=== PATIENT | male | born 1970 | race Caucasian/White ===

== ENCOUNTER 2017-04-07 10:33 | Observation (INO) ==
[2017-04-07 11:22] LABS: Basophils % 0.1 % (0.0-0.8); Eosinophils % 0.4 % (0.00-10.9); Hematocrit 45.7 VOL% (42.0-52.0); Hemoglobin 15.9 GM/DL (14.0-18.0); Immature Granulocytes % 0.4 %; Immature Granulocytes Absolute 0.03 #; Lymphocytes # 1.5 10*3/uL (1.4-4.0); Lymphocytes % 19.9 % (21.2-54.2); Mean Corpuscular HGB Conc 34.8 GM/DL (32-36); Mean Corpuscular Hemoglobin 30 PG (27-34); Mean Platelet Volume 9.2 FL (9.6-12.0); Monocytes # 0.7 10*3/uL (0.11-0.8); Neutrophils # 5.4 10*3/uL (1.4-7.4); Neutrophils % 70.2 % (38.7-73.9); Platelet Count 249 T/CUMM (130-400); Red Blood Count 5.25 MC/CUMM (3.8-5.5); Red Cell Distribution Width 12.6 % (9.3-17.3); White Blood Count 7.7 T/CUMM (4-12)
[2017-04-07 11:23] LABS: Apearance,Urine CLEAR (Clear); Bilirubin,Urine Negative (Negative); Blood, Urine Negative (Negative); Glucose,Urine (UA) Negative (Negative); Ketones,Urine Negative (Negative); Mucus,Urine Few /LPF (Occasional); Nitrite,Urine Negative (Negative); Protein,Urine Negative; RBC,Urine 1 /HPF (0-4); Urine Color Yellow (Yellow); Urine Specific Gravity 1.024 (1.001-1.035); WBC,Urine <1 /HPF (0-6)
[2017-04-07 11:52] LABS: Lactic Acid 0.7 MMOL/L (0.4-2.0)
[2017-04-07 11:54] LABS: Albumin 3.8 G/DL (3.4-5.0); Bilirubin,Total 1.2 MG/DL (0.2-1.0); Calcium 8.7 MG/DL (8.5-10.1); Osmolality,Calculated 276.5 MOS/KG (273-304); Potassium 4.2 MMOL/L (3.5-5.1); Total Protein 7.4 G/DL (6.4-8.3)
--- NOTE | 2017-04-07 12:41 | Emergency Department Note ---
Arrival - Arrival Chief Complaint: Abdominal / Flank Pain Stated Complaint: apendix ED Nursing Triage Note: Pt c/o right lower abd pain since yesterday with some nausea. Sent from [facility] for eval. Mode of Arrival: Wheelchair Source: Patient Time Seen by Provider: 04/07/17 11:01 - History of Present Illness HPI Narrative: 46 y/o white male presents to the ER complaining of nausea and RLQ abdominal pain. Symptoms started yesterday. Pain exacerbated with movement and improves with rest. Denies vomiting, diarrhea, constipation, or fever. Past medical history significant for kidney stones and lithotripsy. Primary Care Physician: Dr. Carranza Onset (ago): day(s) (1) Consistency: constant Severity: mild Quality: aching Allergies/Adverse Reactions: Allergies Allergy/AdvReac Type Severity Reaction Status Date / Time morphine AdvReac Vomiting Verified 04/15/16 23:42 Home Medications: Home Medications Medication Instructions Recorded Confirmed Type cephALEXin [Keflex] 500 mg PO Q8HR 7 Days 04/16/16 Rx Review of System - Review of System 12 point system: reviewed and no additional remarkable complaints except as stated - Review of System Gastrointestinal: Present: abdominal pain (RLQ ), nausea Medical,Surgical,& Family Hx - Medical History Genitourinary: History of: Kidney Stones - Surgical History Thoracic Surgeries: Surgical HX of;: Lithotripsy - Social History Smoking Status: Never smoker Exam Vital Signs: Vital Signs Temperature 98.8 F 04/07/17 11:06 Pulse Rate 63 04/07/17 12:04 Respiratory Rate 18 04/07/17 12:04 Blood Pressure 144/97 04/07/17 12:04 O2 Sat by Pulse Oximetry 98 04/07/17 10:35 - General General appearance: alert, in no apparent distress - ENT ENT exam: Present: normal exam, normal oropharynx, mucous membranes moist - Chest Chest inspection: Present: normal inspection - Respiratory Respiratory exam: Present: normal lung sounds bilaterally - Cardiovascular Cardiovascular exam: Present: regular rate, normal rhythm, normal heart sounds - Abdominal Exam Abdominal exam: Present: soft, tenderness (RLQ ), normal bowel sounds, psoas sign. Absent: heel tap sign - Extremities Exam Extremities exam: Present: normal inspection, full ROM - Neurological Exam Neurological exam: Present: alert, oriented X3 - Psychiatric Psychiatric exam: Present: normal affect, normal mood - Skin Skin exam: Present: warm, dry Course Course Narrative: Patient transferred to Same Day Surgery. - Consultations Consultation #1: Dr. Brock Time: 13:15 (Discussed with Dr. Brock. Will admit patient to his services ) Results - Labs CBC & BMP: 04/07/17 11:19 04/07/17 11:19 Lab Results: I have reviewed the patients labs - Diagnostic Findings Procedure: CT Abdomen and Pelvis: image reviewed by me, report reviewed by me ( acute appendicitis ) Disposition Clinical Impression: Acute appendicitis, Nausea Disposition: Still a Patient Condition: Stable
--- NOTE | 2017-04-07 12:44 | CT Report ---
CT of the abdomen and pelvis with intravenous contrast. No oral contrast was administered. Axial images were obtained with sagittal and coronal reconstructions. Indication: Right lower quadrant pain. Nausea and vomiting. Comparison: December 08, 2013. 100 cc Omni 350. The heart is normal in size. There are mild hypoaeration changes present at the lung bases. The hiatus is patulous, with fatty tissue prominence. No hiatal hernia is seen. The liver is normal in size and density. No focal liver lesion. No intrahepatic biliary ductal dilatation. No splenic enlargement. There is an accessory splenic nodule. No adrenal enlargement. The kidneys are normal in size, location, and contour without hydronephrosis. No pancreatic abnormality. The abdominal aorta is of normal caliber. There is mild free fluid in the pelvis. The loops of bowel are not dilated. The appendix demonstrates dilatation, measuring up to 10 mm in diameter. There is enhancing wall thickening, with irregularity. There is a small amount of inflammation in the surrounding fat. The colon is not dilated. There is no colonic wall thickening. Possible cystic change involving the seminal vesicles. No adenopathy is seen. Degenerative changes are noted within the spinal column, most pronounced at L5-S1. Impression: 1. Findings consistent with acute appendicitis. 2. Patulous abdominal hiatus. No evidence of hiatal hernia at this time. 3. Suspected small cystic areas within the seminal vesicles. The CT exam was performed using one or more of the following dose reduction techniques: Automated exposure control, adjustment of the mA and/or kV according to patient size, or use of iterative reconstruction technique. PROCEDURE INTERPRETED AT [facility] DEPARTMENT OF RADIOLOGY Final Report Signed by: Dr. Reena Laws
[2017-04-07] MEDS ORDERED: SODIUM CHLORIDE 0.9% 1,000 ML IV STA (12:56)
--- NOTE | 2017-04-07 13:38 | General Surg History&Physical ---
Assessment and Plan (1) Acute appendicitis Status: Acute Assessment and plan: The patient has CT proven acute appendicitis. There is no evidence of perforation or abscess. I discussed management options with the patient including medical management with antibiotics and operative intervention. I recommended laparoscopic appendectomy to the patient but of also offered to treat him with antibiotics alone if this is what he desires. I have discussed the risks, benefits, and alternatives of the operation, and the expected outcomes have been reviewed. In particular, I discussed risk of bowel injury, bladder injury, injury to the ureter, infection and postoperative abscess as well as hernia of the incisions. I have discussed the option for antibiotic management and the success rate of 75% with antibiotics alone. Patient would like to proceed with operation. This will be scheduled when an operating room is available. The patient appears well resuscitated and is receiving cefoxitin. Current Visit: Yes History of Present Illness Chief complaint: Abdominal pain History of present illness: Mr. Dukes is a 46 year old male who developed abdominal pain the right lower quadrant on Friday and smoldered through the weekend. It worsened today and he came to the ER for evaluation. Reports some nausea. Subjective fevers. Workup in the ER showed normal white blood cell count and CT scan shows acute nonperforated appendicitis. Bilirubin was a little bit elevated once lab work but there is no stones in his gallbladder and there is no inflammation in the right upper quadrant. Patient's never had abdominal surgery. Home Medications Medication Instructions Recorded Confirmed Type cephALEXin [Keflex] 500 mg PO Q8HR 7 Days 04/16/16 Rx Allergies Allergy/AdvReac Type Severity Reaction Status Date / Time morphine AdvReac Vomiting Verified 04/15/16 23:42 Medical,Surgical,& Family Hx - Medical History Genitourinary: History of: Kidney Stones - Surgical History Thoracic Surgeries: Surgical HX of;: Lithotripsy - Social History Smoking Status: Never smoker Exam - Constitutional Vitals: Period Temp Pulse Resp BP Sys/Robledo Pulse Ox Last 24 Hr 98.8 F-98.8 F 63-83 18-20 140-144/90-97 98 General appearance: no acute distress, over weight - Head Head exam: Present: normal inspection, normocephalic - Eye Eye exam: Present: EOMI Pupils: Present: DIAMOND - ENT ENT exam: Present: normal exam Mouth exam: Present: normal external inspection, normal voice - Neck Neck exam: Present: normal inspection, trachea midline - Respiratory Respiratory exam: Present: clear to auscultation bilaterally. Absent: accessory muscle use, chest wall tenderness - Cardiovascular Cardiovascular exam: Present: RRR. Absent: systolic murmur, tachycardia - GI/Abdominal GI/Abdominal exam: Present: normal bowel sounds, tenderness (There is focal tenderness in the right lower quadrant with voluntary guarding.), soft. Absent : rebound - Extremities Exam Extremities exam: Present: normal inspection, normal capillary refill - Back Exam Back exam: Present: normal inspection - Neurological Exam Neurological exam: Present: alert, oriented X3 Speech: Present: normal - Skin Skin exam: Present: normal color, warm - Constitutional Constitutional: Present: as per HPI - EENT Nose, mouth and throat: Present: as per HPI - Cardiovascular Cardiovascular: Present: as per HPI - Respiratory Respiratory: Present: as per HPI - Gastrointestinal Gastrointestinal: Present: as per HPI - Genitourinary Genitourinary: Present: as per HPI - Musculoskeletal Musculoskeletal: Present: as per HPI - Neurological Neurological: Present: as per HPI - Endocrine Endocrine: Present: as per HPI Hematologic/Lymphatic: Present: as per HPI Results - Labs CBC & BMP: 04/07/17 11:19 04/07/17 11:19 - Diagnostic Findings Procedure: CT Abdomen and Pelvis: image reviewed by me, report reviewed by me ( Acute nonperforated appendicitis)
[2017-04-07] MEDS ORDERED: TISSUE ADHESIVE 1 EACH APPLICATOR TOP ONE (16:15)
[2017-04-07] MEDS ORDERED: BUPIVACAINE 0.25% 50 ML VIAL ONE (16:15)
[2017-04-07] MEDS ORDERED: SUCCINYLCHOLINE 200 MG/10 ML VIAL ONE (16:40)
[2017-04-07] MEDS ORDERED: PROPOFOL 200 MG/20 ML VIAL IV ONE (16:40)
[2017-04-07] MEDS ORDERED: ONDANSETRON 4 MG/2 ML VIAL ONE ×2 (16:40→17:40)
[2017-04-07] MEDS ORDERED: LIDOCAINE 2% 5 ML VIAL ONE (16:40)
[2017-04-07] MEDS ORDERED: ROCURONIUM 100 MG/10 ML VIAL IV ONE (16:40)
[2017-04-07] MEDS ORDERED: SUGAMMADEX 200 MG/2 ML VIAL IV ONE (17:22)
--- NOTE | 2017-04-07 17:32 | Operative Note ---
Date of procedure: 04/07/17 Pre-op diagnosis: Appendicitis Post-op diagnosis: same Procedure: Preoperative diagnosis Acute appendicitis Postoperative diagnosis Same Procedures performed Laparoscopic appendectomy Findings Acute nonperforated appendicitis Blood loss 5 mL Anesthesia GETA Complications None apparent Specimen Appendix Indications Acute appendicitis CT proven. I discussed the option of medical treatment with antibiotics alone with the patient in detail. I discussed the failure rate of 25% with antibiotics alone and the requirement to stay in the hospital for several days of antibiotics and observation. The patient decided to proceed with laparoscopic appendectomy. I discussed the risks, benefits, and alternatives of the operation with the patient, and the expected outcomes were reviewed. In particular, I discussed the risk of bleeding, infection, wound complications, bowel obstruction, and ureteral injury. The patient elects to proceed with the operation. Description of procedure The patient was taken to the operating room and transferred to the operating table in the supine position. Pressure points were padded and SCDs were placed to bilateral lower extremities. General endotracheal anesthesia was administered. The abdominal hair was clipped with electric clippers and the abdomen was prepped with chlorhexidine and draped sterilely. Preoperative antibiotics were administered, and a timeout was performed. The abdomen was entered in the supraumbilical location in the right paramedian position with a Veress needle. Local anesthetic was administered and a 12 mm skin incision was made with an 11 blade scalpel. Penetrating towel clips were used to grasp the abdominal wall skin and a Veress needle was used into the peritoneal cavity. Intra-peritoneal location was confirmed with a double click technique. Aspiration was negative. Saline drop test confirmed intraperitoneal location. The abdomen was insufflated to 15 mmHg with initial insufflation pressure of 7 mmHg. The Veress needle was removed and a 12 mm trocar was placed bluntly. Diagnostic laparoscopy was then performed. There was no evidence of Veress needle or trocar injury. The patient was placed in Trendelenburg and left side rolled down position. Under direct visualization, and after local anesthetic was administered, 2 additional 5 mm trochars were placed in the suprapubic position in the left lower quadrant position. The bowel was then moved out of the right lower quadrant and the appendix was visualized. The appendix was grasped and retracted towards the patient's feet in a window in the appendiceal mesentery was created with [place] dissector. LORE stapler was then used to transect the base of the appendix. The appendiceal mesentery was also divided using vascular staple loads. The right lower quadrant was focally suction irrigated. This was done until the effluent was clear. The appendix was placed in Endo Catch bag and removed through the 12 mm trocar site. The CO2 was then released from the abdomen and the trochars were removed. Skin incisions were closed with 4-0 Monocryl and sterile skin glue was applied. The patient was awakened from anesthesia and transferred to recovery. Postoperative plan Diet as tolerated Follow-up in 2 weeks Anesthesia: YOBANI, local Surgeon / Physician: Chinedu Brock Estimated blood loss: minimal Specimens: other (appendix) Condition: stable Disposition: PACU Results - Labs CBC & BMP: 04/07/17 11:19 04/07/17 11:19 Discharge Plan - Discharge Medications No Action cephALEXin [Keflex] 500 mg PO Q8HR 7 Days - Follow Up or Referral - Forms/Instructions
[2017-04-07] MEDS ORDERED: ONDANSETRON 4 MG/2 ML VIAL IV PRN ×2 (17:40→19:34)
[2017-04-07] MEDS ORDERED: HYDROmorphone 2 MG/1 ML VIAL ONE (17:40)
[2017-04-07] MEDS: HYDROmorphone 2 MG/1 ML VIAL IV PRN ×4 (17:40→17:55)
[2017-04-07] MEDS ORDERED: LACTATED RINGERS 1,000 ML IV SCH ×2 (17:40→19:34)
[2017-04-07] MEDS ORDERED: fentaNYL 100 MCG/2 ML VIAL ONE (18:32)
[2017-04-07] MEDS ORDERED: DESFLURANE 1 UNIT/15 MINUTE INH ONE (18:32)
[2017-04-07] MEDS ORDERED: MIDAZOLAM 2 MG/2 ML VIAL ONE (18:33)
[2017-04-07] MEDS ORDERED: PROMETHAZINE 25 MG/1 ML VIAL IM PRN (19:34)
[2017-04-07] MEDS ORDERED: HYDROmorphone 2 MG/1 ML VIAL IV PRN (19:34)
[2017-04-07] MEDS: KETOROLAC 15 MG/1 ML VIAL IV SCH (22:04)
[2017-04-08] MEDS: KETOROLAC 15 MG/1 ML VIAL IV SCH ×2 (01:15→10:17)
--- NOTE | 2017-04-08 07:04 | Anesthesia Post-Op ---
Anesthesia Post OP - Post Ansesthetic Evaluation Patient seen in post op: Yes Resp: within normal limits CV: within normal limits Mental: within normal limits Temp: within normal limits [id number]-Vcunbnsah: within normal limits Nausea and Vomiting: within normal limits Pain: within normal limits
--- NOTE | 2017-04-08 10:39 | Event Note ---
General Surgery Progress Note Chief complaint This patient is a 46-year-old man who is admitted with acute appendicitis treated with laparoscopic appendectomy on 04/07/2017 Interval history The patient did well overnight. He does not report any pain this morning. He is eating well with no nausea or vomiting. Physical exam Patient is afebrile with normal vital signs His abdominal exam reveals expected postoperative tenderness with clean incisions and no evidence of erythema or drainage Labs None new Imaging None Assessment and plan Discharge home today Follow-up in clinic in 2 weeks
--- NOTE | 2017-04-08 11:06 | Discharge Summary ---
Hospital Course - Hospital Course Hospital Course: Patient is a 46-year-old male who was admitted with acute appendicitis and underwent laparoscopic appendectomy. He experienced no perioperative complications. The day of discharge, he was tolerating oral intake, voiding without difficulty, passing flatus, and had adequate pain management. He was discharged home with appropriate postoperative instructions with a follow-up appointment in 2 weeks. Postoperative analgesics were provided. Diagnosis - Discharge Diagnosis (1) Acute appendicitis Status: Acute Specialty Discharge - Follow Up or Referrals Follow up with: Chinedu Brock MD [Physician] - 04/17/17 9:45 am Discharge Plan - Discharge Data Disposition: Disch To Home/Self Care Condition at Discharge: Stable Discharge Diet: advance to your usual diet Activity: no lifting (> 10 lb), other (Avoid excessive perspiration. No driving while taking narcotics. ) Hygiene: may shower Driving: other (no drivign while taking narcotics) Contact your physician if you experience:: fever over 101, Redness or swelling, Nausea/Vomiting, Bleeding, pain uncontrolled by pain medications Wound / Dressing Care Instructions: Keep incisions clean and dry. Avoid excessive sweating. - Discharge Medications New HYDROcodone/ACETAMIN 7.5-325 [[place] 7.5-325] 1 tablet PO Q4H PRN #30 tablet PRN Reason: Pain Moderate To Severe (4-10) Continue cephALEXin [Keflex] 500 mg PO Q8HR 7 Days - Follow Up or Referral Follow Up: Chinedu Brock MD [Physician] - 04/17/17 9:45 am - Forms/Instructions Instructions: Appendicitis (DC), Laparoscopic Appendectomy (DC) Exam - Constitutional Vitals: Period Temp Pulse Resp BP Sys/Robledo Pulse Ox Last 24 Hr 97.2 F-99.0 F 60-86 15-20 103-185/58-102 94-100 General appearance: no acute distress - Head Head exam: Present: normocephalic - Respiratory Respiratory exam: Present: clear to auscultation bilaterally - Cardiovascular Cardiovascular exam: Present: regular rate and rhythm - GI/Abdominal GI/Abdominal exam: Present: normal bowel sounds, soft, other (appropriate p/o tenderness; surgical incisions c/d/i. No peritoneal signs. ) - Extremities Exam Extremities exam: Absent: calf tenderness, edema - Neurological Exam Neurological exam: Present: alert, oriented X3 Discharge Results Procedures and tests throughout hospitalization: Appendix pathology pending. Pt underwent laparoscopic appendectomy Labs on day of discharge: Labs from last 24 hours 04/07/17 04/07/17 04/07/17 11:19 11:19 11:19 WBC 7.7 RBC 5.25 Hgb 15.9 Hct 45.7 MCV 87.0 MCH 30 MCHC 34.8 RDW 12.6 Plt Count 249 MPV 9.2 L Neut % (Auto) 70.2 Lymph % (Auto) 19.9 L [place] % (Auto) 9.0 Eos % (Auto) 0.4 Baso % (Auto) 0.1 Neut # (Auto) 5.4 Lymph # (Auto) 1.5 [place] # (Auto) 0.7 Eos # (Auto) 0.0 Baso # (Auto) 0.0 Immature Gran % 0.4 Nucleated RBC % 0.0 Immature Gran # 0.03 Nucleated RBCs # 0.00 Immature Plt Fraction 0.0 Sodium 139 Potassium 4.2 Chloride 108 H Carbon Dioxide 25 Anion Gap 10.2 BUN 13 Creatinine 1.00 GFR Calculation 105 BUN/Creatinine Ratio 13.00 Glucose 97 Calculated Osmolality 276.5 Lactic Acid 0.7 Calcium 8.7 Total Bilirubin 1.20 H AST 13 ALT 25 Alkaline Phosphatase 79 Total Protein 7.4 Albumin 3.8 Globulin 3.6 H Albumin/Globulin Ratio 1.0 L Lipase 115.0 Urine Color Urine Appearance Urine pH Ur Specific [place] Urine Protein Urine Glucose (UA) Urine Ketones Urine Blood Urine Nitrate Urine Bilirubin Urine Urobilinogen Urine Leukocytes Urine RBC Urine WBC Urine Mucus Ur Culture Indicated? 04/07/17 11:02 WBC RBC Hgb Hct MCV MCH MCHC RDW Plt Count MPV Neut % (Auto) Lymph % (Auto) [place] % (Auto) Eos % (Auto) Baso % (Auto) Neut # (Auto) Lymph # (Auto) [place] # (Auto) Eos # (Auto) Baso # (Auto) Immature Gran % Nucleated RBC % Immature Gran # Nucleated RBCs # Immature Plt Fraction Sodium Potassium Chloride Carbon Dioxide Anion Gap BUN Creatinine GFR Calculation BUN/Creatinine Ratio Glucose Calculated Osmolality Lactic Acid Calcium Total Bilirubin AST ALT Alkaline Phosphatase Total Protein Albumin Globulin Albumin/Globulin Ratio Lipase Urine Color Yellow Urine Appearance Clear Urine pH 5.0 Ur Specific [place] 1.024 Urine Protein Negative Urine Glucose (UA) Negative Urine Ketones Negative Urine Blood Negative Urine Nitrate Negative Urine Bilirubin Negative Urine Urobilinogen 2.0 H Urine Leukocytes Negative Urine RBC 1 Urine WBC <1 Urine Mucus Few Ur Culture Indicated? Not indicated - Imaging and Cardiology Procedure: CT Abdomen and Pelvis: image reviewed by me, report reviewed by me DS: Provider Date of admission: 04/07/17 17:29 Attending physician on admission: Chinedu Brock MD Consults: None Discharging clinician: Sherri Nguyen PA-C
[2017-04-08 11:42] VITALS: BP 154/98
--- NOTE | 2017-04-09 18:18 | Pathology Report from [facility] ---
[facility] [place] ACCESSION # : [id number] PATIENT NAME : Tristan Dukes ORDERING DR : Chinedu Brock MD CLINICAL HX: Acute appendicitis POST-OP DX: Same SPECIMEN INFO: Appendix GROSS DESCRIPTION: The specimen is received in formalin labeled TRISTAN DUKES consists of an appendix measuring 5.8 cm in length and up to 0.9 cm in diameter. The serosa is smooth and benjamin. The lumen is patent with no fecaliths or perforation seen. [employer] sections submitted in one cassette. DIAGNOSIS FOR TRISTAN DUKES: APPENDIX, APPENDECTOMY: Acute appendicitis with acute serositis. COLLECTED DATE: 04/08/2017 [facility] [place] REPORT DATE: 04/09/2017 ELECTRONICALLY SIGNED BY: Kitty Tovar M.D. 04/09/2017 - 14:03:04 [facility]
== END 2017-04-08 12:05 | disposition home or self-care (01) ==
LOC: N.ED 10:33 → N.SDSINP 13:00 → N.3E 14:05 → N.SDSINP 14:05 → N.OR 14:05 → N.3E 18:28
PROVIDERS: ADMIT Surgery; ATTEND Surgery

== ENCOUNTER 2018-01-12 14:07 | Observation (INO) ==
[2018-01-12] MEDS ORDERED: ENOXAPARIN 100 MG/ML SYRINGE SUBCUT STA (14:49)
[2018-01-12] MEDS ORDERED: ONDANSETRON 4 MG/2 ML VIAL IV STA (14:49)
[2018-01-12] MEDS ORDERED: NITROGLYCERIN 2% OINT 1 INCH/GM PACK TOP STA (14:49)
[2018-01-12] MEDS ORDERED: ASPIRIN 325 MG TABLET PO STA (14:49)
[2018-01-12 15:00] LABS: Basophils % 0.4 % (0.0-0.8); Eosinophils # 0.1 10*3/uL (0.0-0.87); Eosinophils % 1.3 % (0.00-10.9); Hematocrit 48.7 VOL% (42.0-52.0); Hemoglobin 16.6 GM/DL (14.0-18.0); Immature Granulocytes % 0.6 %; Immature Granulocytes Absolute 0.05 #; Lymphocytes # 1.2 10*3/uL (1.4-4.0); Lymphocytes % 15.2 % (21.2-54.2); Mean Corpuscular HGB Conc 34.1 GM/DL (32-36); Mean Corpuscular Hemoglobin 31 PG (27-34); Mean Corpuscular Volume 89.9 FL (87-102); Mean Platelet Volume 9.3 FL (9.6-12.0); Monocytes # 0.9 10*3/uL (0.11-0.8); Monocytes % 10.7 % (1.7-12.7); Neutrophils # 5.7 10*3/uL (1.4-7.4); Neutrophils % 71.8 % (38.7-73.9); Platelet Count 272 T/CUMM (130-400); Red Blood Count 5.42 MC/CUMM (3.8-5.5); Red Cell Distribution Width 12.7 % (9.3-17.3); White Blood Count 7.9 T/CUMM (4-12)
[2018-01-12 15:05] LABS: PT Patient Result 10.1 SECS; Partial Thromboplastin Time 24.7 SECS (0-40)
[2018-01-12 15:11] LABS: Albumin 3.7 G/DL (3.4-5.0); Bilirubin,Total 0.8 MG/DL (0.2-1.0); Calcium 9.1 MG/DL (8.5-10.1); Osmolality,Calculated 276.5 MOS/KG (273-304); Potassium 4.2 MMOL/L (3.5-5.1); Total Protein 7.2 G/DL (6.4-8.3)
[2018-01-12 15:13] LABS: Troponin I Only < 0.015 NG/ML (0.00-0.045)
[2018-01-12] MEDS ORDERED: ACETAMINOPHEN 325 MG TABLET PO PRN (15:18)
[2018-01-12] MEDS ORDERED: ZALEPLON 5 MG CAPSULE PO PRN (15:18)
[2018-01-12] MEDS ORDERED: DOCUSATE SODIUM 100 MG CAPSULE PO PRN (15:18)
[2018-01-12] MEDS ORDERED: ONDANSETRON 4 MG/2 ML VIAL IV PRN (15:18)
[2018-01-12 15:51] LABS: Risk Ratio 5.94; Thyroid Stimulating Hormone 1.12 uIU/ml (0.358-3.74); VLDL CHOLESTEROL 79.4 MG/DL
[2018-01-12 20:38] LABS: Troponin I Only < 0.015 NG/ML (0.00-0.045)
[2018-01-12] MEDS ORDERED: NITROGLYCERIN SL 0.4 MG TABLET SL PRN (20:53)
[2018-01-12] MEDS: NITROGLYCERIN 2% OINT 1 INCH/GM PACK TOP SCH (21:37)
[2018-01-13 03:23] LABS: Basophils % 0.2 % (0.0-0.8); Eosinophils # 0.1 10*3/uL (0.0-0.87); Hematocrit 45.2 VOL% (42.0-52.0); Hemoglobin 15.6 GM/DL (14.0-18.0); Immature Granulocytes % 0.5 %; Immature Granulocytes Absolute 0.05 #; Lymphocytes # 2.1 10*3/uL (1.4-4.0); Lymphocytes % 22.5 % (21.2-54.2); Mean Corpuscular HGB Conc 34.5 GM/DL (32-36); Mean Corpuscular Hemoglobin 31 PG (27-34); Mean Corpuscular Volume 89.5 FL (87-102); Mean Platelet Volume 9.5 FL (9.6-12.0); Monocytes % 10.9 % (1.7-12.7); Neutrophils % 64.9 % (38.7-73.9); Platelet Count 256 T/CUMM (130-400); Red Blood Count 5.05 MC/CUMM (3.8-5.5); Red Cell Distribution Width 12.9 % (9.3-17.3); White Blood Count 9.2 T/CUMM (4-12)
[2018-01-13 03:51] LABS: Risk Ratio 5.84
[2018-01-13 03:53] LABS: Troponin I Only < 0.015 NG/ML (0.00-0.045)
[2018-01-13 04:00] LABS: Albumin 3.5 G/DL (3.4-5.0); Bilirubin,Total 0.9 MG/DL (0.2-1.0); Calcium 8.1 MG/DL (8.5-10.1); Osmolality,Calculated 279.5 MOS/KG (273-304); Potassium 3.7 MMOL/L (3.5-5.1); Total Protein 6.8 G/DL (6.4-8.3)
[2018-01-13] MEDS ORDERED: PANTOPRAZOLE 40 MG TABLET PO SCH (09:00)
[2018-01-13] MEDS: NITROGLYCERIN 2% OINT 1 INCH/GM PACK TOP SCH (09:06)
[2018-01-13 10:33] LABS: Troponin I Only < 0.015 NG/ML (0.00-0.045)
[2018-01-13 12:17] VITALS: BP 130/72
[2018-01-13] MEDS ORDERED: ENOXAPARIN 40 MG/0.4 ML SYRINGE SUBCUT SCH (21:00)
== END 2018-01-13 15:52 | disposition home or self-care (01) ==
LOC: EDBD → EDUNIT# → N.EDINP 14:07 → N.ED 14:07 → SUATTDRO 15:18 → N.TELEN 18:48
PROVIDERS: ADMIT Hospitalist; ATTEND Internal Medicine Cardiovascular Disease